=== PATIENT | male | born 1945 | race Caucasian/White ===

== ENCOUNTER → 2019-06-19 | Outpatient (CLI) | payer OTHER ==
[~2019-06-19] VITALS: Ht 172.7 cm; Wt 86.2 kg
[~2019-06-19] MED LIST: ACEBUTOLOL HCL200 MG PO; ASA81BEC PO; FISH OIL 1,0001 EAC9 PO; HUMALOG100 UNIT/1 SUBQ; LANTUS SUBQ; LIPITOR40 MG PO; LISINOPRIL2.5 MG PO; METFORMIN HCL500 M3 PO; MULTI VITAMIN1 EACH PO
[2019-06-19 07:01] VITALS: BP 157/54
[2019-06-19 07:14] LABS: HEMATOCRIT 40.5 % (42.0-52.0); HEMOGLOBIN 13.5 gm/dL (14.0-18.0); MCH 28.9 pg (26.0-34.0); MCHC 33.3 g/dL (28.0-37.0); MCV 86.6 fL (80.0-100.0); RBC 4.67 mil/uL (4.50-6.00); RDW 13.6 % (10.5-14.5); WBC 9.5 thou/uL (4.0-11.0)
[2019-06-19 07:21] LABS: CALCIUM 9.3 mg/dL (8.5-10.1); CREATININE 1.5 mg/dL (0.7-1.3); POTASSIUM 4.7 mmol/L (3.5-5.1)
--- NOTE | 2019-06-19 08:13 | EKG ---
[place] [address] [facility] [place] [address] ELECTROCARDIOGRAM REPORT Name: GILSON JAEGER [facility] [id number] Admission: 06/19/19 Attend Phys: Sherman Ledesma MD, Discharge: Date of : 49 Report #: [id number] THIS REPORT FOR: //name// [facility] Test Date: 2019-06-19 Test Time: 07:13:38 Pat Name: GILSON JAEGER Department: Room: Gender: Hand Ii Blocker: Sowmya SANCHES : 1945 Requested By: Sherman Ledesma Order Number: [id number] MD: Louis Jackson Measurements Intervals [place] Rate: 54 P: -10 ME: 147 QRS: 11 QRSD: 85 T: 52 QT: 429 QTc: 407 Interpretive Statements Sinus rhythm Nonspecific T wave abnormality No previous ECG available for comparison Electronically Signed On 06-19-2019 8:13:23 CDT by Louis Jackson [email or web address] <ELECTRONICALLY SIGNED> By: Louis Jackson MD, [facility] 06/19/19812 2 2 Louis Jackson MD, FACC /EPI
--- NOTE | 2019-06-19 18:07 | CATHLAB ---
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 A PINNACLE 6FR Sheath #[id number] sheath was inserted into the RFA^. Coronary angiography was performed using coronary diagnostic catheters. The right coronary system was accessed and visualized with a JR4 catheter. The left coronary system was accessed and visualized with a JL4 catheter. The left ventricle was accessed and visualized with a Pigtail catheter. Left ventriculogram was performed in 30 degree projection. An aortogram of the abdominal aorta was performed. Pre-demployment femoral angiogram was performed . Closure device was deployed with a 6 Fr MYNXGRIP 6/7F #[id number]. The patient tolerated the procedure well and there were no complications associated with the procedure. There was no hematoma. Intraoperative Conscious Sedation Sedation start time: 08:26 Case end Time: 08:51 Fentanyl 75 mcg Versed 1.5 mg Fluoro Time: 1.12 minutes [facility] [place] [place] [address] INVASIVE PROCEDURE REPORT Name: GILSON JAEGER [id number] Admission: 06/19/19 Attend Phys: Sherman Ledesma, Discharge: Date of : 49 Report #: [id number] Dose: DAP 3094.90 cGycm2 376 mGy Contrast Type and Amount: Visipaque 95 ml Hemodynamics The aortic pressure is 117/51 mmHg with a mean of 58 mmHg. The left ventricular pressure is 141/9 mmHg with a mean of mmHg. The left ventricular end diastolic pressure is 19 mmHg. 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 No indication for intervention. #5 circumflex OM is small nondominant diffusely disease #6 dominant right with an eccentric lesion of 40% otherwise a well preserved large dominant system. Regulations plan: Continue aggressive risk factor modification no indication for coronary intervention. Follow-up with Dr. Bone [facility] cardiology. <ELECTRONICALLY SIGNED> By: Sherman Ledesma MD, FACC 06/19/191805 05 05 Sherman Ledesma MD, FACC /INF
== END | disposition home or self-care (01) ==
LOC: CATH 06:26
PROVIDERS: Internal Medicine Cardiovascular Disease
DX: R94.39 Abnormal result of other cardiovascular function study (principal); I25.10 Atherosclerotic heart disease of native coronary artery without angina pectoris; I77.811 Abdominal aortic ectasia; I10 Essential (primary) hypertension; E11.9 Type 2 diabetes mellitus without complications; K21.9 Gastro-esophageal reflux disease without esophagitis; E78.5 Hyperlipidemia, unspecified; Z79.4 Long term (current) use of insulin; Z87.891 Personal history of nicotine dependence; Z98.890 Other specified postprocedural states; Z79.899 Other long term (current) drug therapy; Z79.82 Long term (current) use of aspirin